=== PATIENT | male | born 1935 | race Caucasian/White ===

== ENCOUNTER 2021-11-30 09:05 | Inpatient (IN) | payer MEDICARE ==
[2021-11-30] MEDS ORDERED: SODIUM CHLORIDE 0.9% 500 ML 500 ML IV STA (09:42)
--- NOTE | 2021-11-30 09:45 | ED ---
General Adult HPI - General Chief complaint: Weakness Stated complaint: nausea Time Seen by Provider: 11/30/21 09:11 Source: patient, EMS Mode of arrival: EMS Limitations: physical limitation - History of Present Illness Initial comments: Dictation was produced using [employer] dictation software. please excuse any grammatical, word or spelling errors. Chief Complaint: 85-year-old male presents emergency department for weakness of presyncope History of Present Illness: 85-year-old male is brought in by EMS for weakness and presyncope. He is had diarrhea for the last one week. Patient was, complains of accompanying shortness of breath. Patient is a poor story. He states that today he almost passed out. He felt really lightheaded. According to nurse received report from EMS EMS was called by patient's family member after the event today. Patient states she's being treated for something by his primary care doctor. Patient states he feels weak and tingly and both lower extremities. Denies any fevers. He states that he feels cold. He has medical process but unable to provide detailed history of his past medical history and current medications. He states he does have some rhinorrhea and nasal congestion. Denies any vaccinations for Coban. Denies any obvious exposures to anybody with URI symptoms. The ROS documented in this emergency department record has been reviewed and confirmed by me. Those systems with pertinent positive or negative responses have been documented in the HPI. All other systems are other negative and/or noncontributory. PHYSICAL EXAM: General Impression: Alert and oriented x3, not in acute distress HEENT: Normocephalic atraumatic, extra-ocular movements intact, pupils equal and reactive to light bilaterally, mucous membranes moist. Cardiovascular: Heart regular rate and rhythm Chest: Able to complete full sentences, no retractions, no tachypnea, so auscultation bilaterally Abdomen: abdomen soft, non-tender, non-distended, no organomegaly Musculoskeletal: Pulses present and equal in all extremities, no peripheral edema Motor: no focal deficits noted Neurological: CN II-XII grossly intact, no focal motor or sensory deficits noted Skin: Intact with no visualized rashes Psych: Normal affect and mood ED course: 85-year-old male presents emergency part for shortness of breath, diarrhea, URI symptoms and bilateral lower extremity paresthesias. Vital signs upon arrival shows temperature 95.3, heart rate of 47. Blood pressure respiratory rate and oxygen are normal. EKG shows narrow complex junctional rhythm. There is no clearly discernible P waves. Laboratory evaluation shows leukopenia of 2.1. Platelets of 85. No old labs for comparison. Coag panel is unremarkable. Metabolic panel shows 128 sodium. Patient is COVID-19 positive. Chest x-ray is nonacute. ambulatory pulse ox is normal. Patient given IV fluids. Patient is agreeable for monoclonal antibody infusion. Patient is so bradycardic at the bedside. Repeat EKG shows no dynamic changes however still shows bradycardia with no discernible P waves. However, rest the patient's vital signs are within acceptable limits. He is well appearing at the bedside. Patient be admitted for cardiology consultation. Case discussed with Dr. Santiago who is willing to accept patients care. EKG interpretation: Ventricular rate 49, junctional rhythm, QRS 76, QTC 473. No GA prolongation, no QTC prolongation, no ST or T-wave changes noted. - Related Data Home Medications Medication Instructions Recorded Confirmed Aspirin EC [Ecotrin Low Dose] 81 mg PO DAILY 11/30/21 11/30/21 Cholecalciferol [Vitamin D3 (25 50 mcg PO DAILY 11/30/21 11/30/21 Mcg = 1000 Iu)] Levothyroxine Sodium [Synthroid] 50 mcg PO DAILY 11/30/21 11/30/21 Naproxen Sodium [Aleve] 220 mg PO BID PRN 11/30/21 11/30/21 Omeprazole 20 mg PO DAILY 11/30/21 11/30/21 Tamsulosin HCl [Flomax] 0.4 mg PO DAILY 11/30/21 11/30/21 diphenhydrAMINE [Benadryl] 25 mg PO Q4-6H PRN 11/30/21 11/30/21 Allergies Allergy/AdvReac Type Severity Reaction Status Date / Time No Known Allergies Allergy Verified 11/30/21 11:00 Review of Systems ROS Statement: Those systems with pertinent positive or pertinent negative responses have been documented in the HPI. ROS Other: All systems not noted in ROS Statement are negative. Past Medical History Past Medical History: Unable to Obtain History of Any Multi-Drug Resistant Organisms: None Reported Past Surgical History: Unable to Obtain Past Psychological History: No Psychological Hx Reported Smoking Status: Former smoker Past Alcohol Use History: Occasional Past Drug Use History: None Reported General Exam Limitations: physical limitation Course Vital Signs 11/30/21 11/30/21 11/30/21 09:11 10:43 12:42 Temperature 95.3 F L 97.0 F L Pulse Rate 47 L 50 L 55 L Respiratory 24 18 20 Rate Blood Pressure 117/75 107/61 120/50 O2 Sat by Pulse 99 98 98 Oximetry Medical Decision Making - Lab Data Result diagrams: 11/30/21 09:42 11/30/21 09:42 Lab Results 11/30/21 11/30/21 11/30/21 Range/Units 09:42 09:42 09:42 WBC 2.1 L (3.8-10.6) k/uL RBC 4.54 (4.30-5.90) m/uL Hgb 13.1 (13.0-17.5) gm/dL Hct 37.9 L (39.0-53.0) % MCV 83.4 (80.0-100.0) fL MCH 28.9 (25.0-35.0) pg MCHC 34.6 (31.0-37.0) g/dL RDW 13.1 (11.5-15.5) % Plt Count 85 L (150-450) k/uL MPV 7.3 Neutrophils % 73 % Lymphocytes % 16 % Monocytes % 5 % Eosinophils % 3 % Basophils % 1 % Neutrophils # 1.5 (1.3-7.7) k/uL Lymphocytes # 0.3 L (1.0-4.8) k/uL Monocytes # 0.1 (0-1.0) k/uL Eosinophils # 0.1 (0-0.7) k/uL Basophils # 0.0 (0-0.2) k/uL Manual Slide Review Performed Poikilocytosis Slight PT 10.6 (9.0-12.0) sec INR 1.0 (<1.2) APTT 25.5 (22.0-30.0) sec Sodium 128 L (137-145) mmol/L Potassium 3.8 (3.5-5.1) mmol/L Chloride 100 (98-107) mmol/L Carbon Dioxide 20 L (22-30) mmol/L Anion Gap 8 mmol/L BUN 11 (9-20) mg/dL Creatinine 0.73 (0.66-1.25) mg/dL Est GFR (CKD-EPI)AfAm >90 (>60 ml/min/1.73 sqM) Est GFR (CKD-EPI)NonAf 85 (>60 ml/min/1.73 sqM) Glucose 118 H (74-99) mg/dL Plasma Lactic Acid Adalberto (0.7-2.0) mmol/L Calcium 8.1 L (8.4-10.2) mg/dL Magnesium 1.7 (1.6-2.3) mg/dL Total Bilirubin 0.9 (0.2-1.3) mg/dL AST 45 (17-59) U/L ALT 17 (4-49) U/L Alkaline Phosphatase 99 (38-126) U/L Troponin I (0.000-0.034) ng/mL Total Protein 5.9 L (6.3-8.2) g/dL Albumin 3.5 (3.5-5.0) g/dL Coronavirus (PCR) (Not Detectd) 11/30/21 11/30/21 11/30/21 Range/Units 09:42 09:42 09:42 WBC (3.8-10.6) k/uL RBC (4.30-5.90) m/uL Hgb (13.0-17.5) gm/dL Hct (39.0-53.0) % MCV (80.0-100.0) fL MCH (25.0-35.0) pg MCHC (31.0-37.0) g/dL RDW (11.5-15.5) % Plt Count (150-450) k/uL MPV Neutrophils % % Lymphocytes % % Monocytes % % Eosinophils % % Basophils % % Neutrophils # (1.3-7.7) k/uL Lymphocytes # (1.0-4.8) k/uL Monocytes # (0-1.0) k/uL Eosinophils # (0-0.7) k/uL Basophils # (0-0.2) k/uL Manual Slide Review Poikilocytosis PT (9.0-12.0) sec INR (<1.2) APTT (22.0-30.0) sec Sodium (137-145) mmol/L Potassium (3.5-5.1) mmol/L Chloride (98-107) mmol/L Carbon Dioxide (22-30) mmol/L Anion Gap mmol/L BUN (9-20) mg/dL Creatinine (0.66-1.25) mg/dL Est GFR (CKD-EPI)AfAm (>60 ml/min/1.73 sqM) Est GFR (CKD-EPI)NonAf (>60 ml/min/1.73 sqM) Glucose (74-99) mg/dL Plasma Lactic Acid Adalberto 1.4 (0.7-2.0) mmol/L Calcium (8.4-10.2) mg/dL Magnesium (1.6-2.3) mg/dL Total Bilirubin (0.2-1.3) mg/dL AST (17-59) U/L ALT (4-49) U/L Alkaline Phosphatase (38-126) U/L Troponin I <0.012 (0.000-0.034) ng/mL Total Protein (6.3-8.2) g/dL Albumin (3.5-5.0) g/dL Coronavirus (PCR) Detected A (Not Detectd) Disposition Clinical Impression: Bradycardia, COVID-19 Disposition: ADMITTED IP TO THIS HOSP Condition: Fair Referrals: Javad Pierre MD [Primary Care Provider] - 1-2 days
[2021-11-30 10:04] LABS: Partial Thromboplastin Time 25.5 sec (22.0-30.0); Prothrombin Time 10.6 sec (9.0-12.0)
[2021-11-30 10:07] LABS: Basophils % (A) 1 %; Eosinophils # (A) 0.1 k/uL (0-0.7); Eosinophils % (A) 3 %; HCT 37.9 % (39.0-53.0); HGB 13.1 gm/dL (13.0-17.5); Lymphocytes # (A) 0.3 k/uL (1.0-4.8); Lymphocytes % (A) 16 %; MCH 28.9 pg (25.0-35.0); MCHC 34.6 g/dL (31.0-37.0); MCV 83.4 fL (80.0-100.0); Mean Platelet Volume 7.3; Monocytes # (A) 0.1 k/uL (0-1.0); Monocytes % (A) 5 %; Neutrophils # (A) 1.5 k/uL (1.3-7.7); Neutrophils % (A) 73 %; Poikilocytosis Slight; RBC 4.54 m/uL (4.30-5.90); RDW 13.1 % (11.5-15.5); WBC 2.1 k/uL (3.8-10.6)
[2021-11-30 10:16] LABS: ALT 17 U/L (4-49); AST 45 U/L (17-59); African American GFR (CKD) >90 (>60 ml/min/1.73 sqM); Albumin 3.5 g/dL (3.5-5.0); Alkaline Phosphatase 99 U/L (38-126); Anion Gap 8 mmol/L; Blood Urea Nitrogen 11 mg/dL (9-20); Calcium 8.1 mg/dL (8.4-10.2); Carbon Dioxide 20 mmol/L (22-30); Chloride 100 mmol/L (98-107); Glucose 118 mg/dL (74-99); Magnesium 1.7 mg/dL (1.6-2.3); Non-African American GFR(CKD) 85 (>60 ml/min/1.73 sqM); Potassium 3.8 mmol/L (3.5-5.1); Sodium 128 mmol/L (137-145); Total Bilirubin 0.9 mg/dL (0.2-1.3); Total Protein 5.9 g/dL (6.3-8.2)
--- NOTE | 2021-11-30 10:19 | XR ---
EXAMINATION TYPE: XR chest 1V portable DATE OF EXAM: 11/30/2021 COMPARISON: NONE HISTORY: Weakness TECHNIQUE: Single frontal view of the chest is obtained. FINDINGS: There is no focal air space opacity, pleural effusion, or pneumothorax seen. The cardiac silhouette size is within normal limits. The osseous structures are intact. Hyperinflation. Hypertr ophic and degenerative changes spine. Arthropathy of the shoulders with diffuse osteopenia. Vague 7 m m nodule right midlung laterally. IMPRESSION: 1. COPD 2. There is a 7 mm right midlung nodule. May represent superimposed structures. Short-term follow-up PA and lateral views of the chest are recommended. If the finding persists at that point a CT scan wo uld be suggested.
[2021-11-30 10:30] LABS: Platelet Count 85 k/uL (150-450)
[2021-11-30] MEDS ORDERED: SODIUM CHLORIDE 0.9% 1,000 ML IV STA (11:59)
[2021-11-30] MEDS ORDERED: SODIUM CHLORIDE 0.9% 50 ML IVPB ONE (12:15)
[2021-11-30] MEDS ORDERED: SOTROVIMAB (EUA) 500 MG in SODIUM CHLORIDE 0.9% 100 ML IVPB ONE (12:15)
[2021-11-30] MEDS ORDERED: NALOXONE 0.4 MG/ML 1 ML VIAL IV PRN (12:44)
[2021-11-30] MEDS: SODIUM CHLORIDE 0.9% 1,000 ML IV SCH (12:47)
[2021-11-30 13:33] LABS: Appearance,Urine Clear (Clear); Bilirubin,Urine Negative (Negative); Blood,Urine Negative (Negative); Color,Urine Yellow; Glucose,Urine (UA) Negative (Negative); Ketones,Urine 4+ (Negative); Leukocyte Esterase,Urine Negative (Negative); Nitrite,Urine Negative (Negative); Protein,Urine Trace (Negative); Specific Gravity,Urine 1.025 (1.001-1.035)
[2021-11-30 13:42] LABS: African American GFR (CKD) >90 (>60 ml/min/1.73 sqM); Anion Gap 8 mmol/L; Blood Urea Nitrogen 11 mg/dL (9-20); Calcium 7.6 mg/dL (8.4-10.2); Carbon Dioxide 20 mmol/L (22-30); Chloride 101 mmol/L (98-107); Glucose 99 mg/dL (74-99); Non-African American GFR(CKD) 89 (>60 ml/min/1.73 sqM); Potassium 3.6 mmol/L (3.5-5.1); Sodium 129 mmol/L (137-145)
[2021-11-30] MEDS: ACETAMINOPHEN TAB 325 MG TAB PO PRN (14:01)
--- NOTE | 2021-11-30 14:11 | P.HPIM ---
History of Present Illness H&P Date: 11/30/21 Chief Complaint: Diarrhea, increased weakness and congestion History of present illness 85 years old male with past medical history of hypothyroidism, GERD, BPH patient of Dr. Pierre comes in with increased weakness, dizziness, multiple bowel movements, flulike symptoms for the past 1 week. Patient was at a family event 1 week ago there all the family members had flulike symptoms. Patient did not recover from the symptoms and was progressively getting weaker. He went to have a shower this morning and was unable to hold himself up. He has poor appetite but is trying to drink of water. He is having multiple episodes of diarrhea for the past week. Patient is not vaccinated for COVID. On evaluation in the ER patient was noted to be bradycardic to the low 47 maintaining blood pressure 117/75 oxygen saturation 99% on room air. Labs are reviewed patient is leukopenic, with thrombocytopenia, hyponatremia, CO2 of 20 creatinine 0.73 troponin 1 negative COVID PCR positive. Chest x-ray suggestive of a 7 mm right mid lung nodule but otherwise no focal airspace opacity pleural effusion or pneumothorax noted. EKG was concerning for junctional rhythm with non- identifiable P waves. On the monitor patient was noted to have heart rate of 55 with normal conduction including P waves in proceeding QRS. Echocardiogram to be obtained. Patient received monoclonal antibody infusion but due to low heartrate would need cardiology evaluation to rule out underlying induction defect. Patient will be started on IV fluids at 75 mL per hour. We'll monitor CMP for hyponatremia. Patient does have evidence of metabolic acidosis likely secondary to fluid loss. ROS Constitutional: Endorses chills, lethargic, poor appetite and , Denies weight loss Eyes: denies decreased vision, denies diplopia, denies discharge, denies pain Ears: deny: decreased hearing Ears, nose, mouth and throat: Denies dental pain, Denies headache, endorses nasal discharge, Denies nose pain endorses lack of smell Cardiovascular: Denies chest pain, Denies decreased exercise tolerance, Denies edema, Denies high blood pressure, Denies irregular heart beat, Denies palpitations, Denies paroxysmal nocturnal dyspnea, Denies rapid heart beat, Denies shortness of breath Respiratory: Denies congestion, endorses cough, Denies cough with sputum, endorses dyspnea, Denies home oxygen, Denies wheezing Gastrointestinal: Denies abdominal pain, Denies coffee ground emesis, Denies early satiety, Denies excessive gas, Denies heartburn, Denies hematemesis, Denies hematochezia, Denies loss of appetite, Denies nausea, Denies vomiting endorses diarrhea Genitourinary: Denies dysuria, Denies flank pain, Denies kidney stones, Denies menorrhagia, Denies urgency, Denies urinary frequency Musculoskeletal: Endorses limitation of motion, Denies morning stiffness, Denies muscle cramps Integumentary: Denies rash, Denies wounds, Denies brittle nails, Denies change in hair/nails, Denies darkening of skin Neurological: Denies balance difficulties, Denies change in speech, Denies double vision, Denies gait dysfunction, Denies loss of vision, Denies motor disturbance, Denies numbness, Denies paralysis, Denies paresthesias, Denies seizures Psychiatric: Denies anxiety, Denies depression Endocrine: Denies excessive sweating, Denies excessive thirst, Denies high blood sugars, Denies palpitations Hematologic/Lymphatic: Denies easy bruising, Denies lymphadenopathy Social history Former smoker quit 20 years ago smoked one pack a day No alcohol use and no illicit drug use Lives with his 5 functionally independent Family history Mother has history of smoking and drinking Father had diabetes, of lung cancer Son has coronary artery disease, daughter has diabetes Physical exam - Constitutional General appearance: cooperative, no acute distress, appears stated age - EENT Eyes: anicteric sclerae, PERRLA, normal appearance ENT: hearing grossly normal - Neck Neck: no lymphadenopathy, normal ROM, no other, no rigidity, no stridor, no thyromegaly - Respiratory Respiratory: bilateral: Decreased air entry, negative: diminished, dullness, rales, rhonchi or crackles - Cardiovascular Rhythm: regular Heart sounds: normal: S1, S2 Abnormal Heart Sounds: no systolic murmur, no diastolic murmur, no rub, no S3 Gallop, no S4 Gallop, no click, no other - Gastrointestinal General gastrointestinal: normal bowel sounds, soft nontender - Integumentary Integumentary: no rash - Neurologic Neurologic: No motor or sensory deficit - Musculoskeletal Musculoskeletal: gait normal, strength equal bilaterally - Psychiatric Psychiatric: A&O x's 3, appropriate affect Assessment and plan Presyncope likely secondary to hypovolemia -Status post 1.5 L IV fluid followed by IV fluids at 75 mL per hour - Likely secondary to COVID infection - orthostatic ordered Hyponatremia - Secondary to hypovolemia - Repeat CMP -Continue normal saline at 75 mL per hour Leukopenia with thrombocytopenia - Secondary to COVID infection -Continue to monitor with daily CBC -No overt signs of bleed Acute gastroenteritis secondary to viral infection -Continue to hydrate with IV fluids no antibiotics indicated - Acute COVID infection -Status post sotrovimab infusion -Inflammation markers ordered - Continue vitamin C, D and sitting - Dexamethasone 6 mg by mouth daily - Lovenox 40 subcu daily -Venous Doppler to rule out lower extremity DVTs if d-dimer elevated Bradycardia with presyncope - EKG noted to be junctional rhythm, repeat EKG -echocardiogram ordered to rule out cardiomyopathy - TSH ordered - Vitals are stable - Cardiology consult Hypothyroidism - continue levothyroxine 50 g by mouth daily BPH -Continue Flomax 0.4 mg by mouth daily GERD -Continue omeprazole 20 mg daily CODE STATUS full code DVT prophylaxis with Lovenox 40 subcu daily Disposition patient need 24-48 hours for cardiology evaluation and stabilization - Past Medical History Past Medical History: Unable to Obtain History of Any Multi-Drug Resistant Organisms: None Reported Past Surgical History: Unable to Obtain Past Psychological History: No Psychological Hx Reported Smoking Status: Former smoker Past Alcohol Use History: Occasional Past Drug Use History: None Reported Medications and Allergies Home Medications Medication Instructions Recorded Confirmed Type Aspirin EC [Ecotrin Low Dose] 81 mg PO DAILY 11/30/21 11/30/21 History Cholecalciferol [Vitamin D3 (25 50 mcg PO DAILY 11/30/21 11/30/21 History Mcg = 1000 Iu)] Levothyroxine Sodium [Synthroid] 50 mcg PO DAILY 11/30/21 11/30/21 History Naproxen Sodium [Aleve] 220 mg PO BID PRN 11/30/21 11/30/21 History Omeprazole 20 mg PO DAILY 11/30/21 11/30/21 History Tamsulosin HCl [Flomax] 0.4 mg PO DAILY 11/30/21 11/30/21 History diphenhydrAMINE [Benadryl] 25 mg PO Q4-6H PRN 11/30/21 11/30/21 History Allergies Allergy/AdvReac Type Severity Reaction Status Date / Time No Known Allergies Allergy Verified 11/30/21 11:00 Physical Exam Vitals: Vital Signs Temp Pulse Resp BP Pulse Ox 11/30/21 12:42 97.0 F L 55 L 20 120/50 98 11/30/21 10:43 50 L 18 107/61 98 11/30/21 09:11 95.3 F L 47 L 24 117/75 99 Intake and Output 11/29/21 11/30/21 11/30/21 22:59 06:59 14:59 Other: Weight 82.1 kg Results CBC & Chem 7: 11/30/21 09:42 11/30/21 13:16 Labs: Abnormal Lab Results - Last 24 Hours (Table) 11/30/21 11/30/21 11/30/21 Range/Units 09:42 09:42 09:42 WBC 2.1 L (3.8-10.6) k/uL Hct 37.9 L (39.0-53.0) % Plt Count 85 L (150-450) k/uL Lymphocytes # 0.3 L (1.0-4.8) k/uL Sodium 128 L (137-145) mmol/L Carbon Dioxide 20 L (22-30) mmol/L Glucose 118 H (74-99) mg/dL Calcium 8.1 L (8.4-10.2) mg/dL Total Protein 5.9 L (6.3-8.2) g/dL Urine Protein (Negative) Urine Ketones (Negative) Coronavirus (PCR) Detected A (Not Detectd) 11/30/21 11/30/21 Range/Units 13:16 13:16 WBC (3.8-10.6) k/uL Hct (39.0-53.0) % Plt Count (150-450) k/uL Lymphocytes # (1.0-4.8) k/uL Sodium 129 L (137-145) mmol/L Carbon Dioxide 20 L (22-30) mmol/L Glucose (74-99) mg/dL Calcium 7.6 L (8.4-10.2) mg/dL Total Protein (6.3-8.2) g/dL Urine Protein Trace H (Negative) Urine Ketones 4+ H (Negative) Coronavirus (PCR) (Not Detectd)
[2021-11-30] MEDS ORDERED: ALBUTEROL HFA INHALER INHALATION PRN (14:13)
[2021-11-30] MEDS: dexAMETHasone 2 MG TAB PO SCH (15:52)
[2021-11-30] MEDS: MAGNESIUM SULFATE-D5W PMX 1 GM in DEXTROSE/WATER 1 100ML.BAG IVPB SCH ×2 (15:53→17:57)
[2021-11-30] MEDS: ZINC SULFATE 220 MG CAP PO SCH (15:53)
[2021-11-30 15:55] LABS: C Reactive Protein 0.8 mg/dL (<1.0)
[2021-12-01] MEDS: LEVOTHYROXINE 50 MCG TAB PO SCH (06:20)
[2021-12-01] MEDS: ASCORBIC ACID 500 MG TAB PO SCH ×3 (06:20→20:31)
[2021-12-01] MEDS: SODIUM CHLORIDE 0.9% 1,000 ML IV SCH ×2 (06:23→12:03)
[2021-12-01] MEDS ORDERED: TAMSULOSIN 0.4 MG CAP.ER.24H PO SCH ×2 (09:00→21:00)
[2021-12-01] MEDS: ENOXAPARIN 40 MG/0.4 ML SYRINGE SQ SCH (10:27)
[2021-12-01] MEDS: ZINC SULFATE 220 MG CAP PO SCH (10:28)
[2021-12-01] MEDS: dexAMETHasone 2 MG TAB PO SCH (10:28)
[2021-12-01] MEDS: CHOLECALCIFEROL 25 MCG (1000 IU) TABLET PO SCH (10:28)
[2021-12-01] MEDS: ASPIRIN 81 MG PO SCH (10:28)
[2021-12-01] MEDS: PANTOPRAZOLE 40 MG TABLET PO SCH (10:28)
--- NOTE | 2021-12-01 12:00 | ECHOF ---
Referral Reason:bradycardia, r/o cardiomyopathy MEASUREMENTS -------- HEIGHT: 170.2 cm WEIGHT: 82.1 kg BP: 93/60 RVIDd: 3.4 cm (< 3.3) IVSd: 1.2 cm (0.6 - 1.1) LVIDd: 4.1 cm (3.9 - 5.3) LVPWd: 1.2 cm (0.6 - 1.1) IVSs: 1.9 cm LVIDs: 2.5 cm LVPWs: 1.6 cm LA Diam: 3.6 cm (2.7 - 3.8) Ao Diam: 3.7 cm (2.0 - 3.7) AV Cusp: 2.2 cm (1.5 - 2.6) MV EXCURSION: 14.414 mm (> 18.000) MV EF SLOPE: 48 mm/s (70 - 150) EPSS: 0.3 cm MV E Hardeep: 0.74 m/s MV DecT: 245 ms MV A Hardeep: 0.88 m/s MV E/A Ratio: 0.84 RAP: 5.00 mmHg RVSP: 18.41 mmHg FINDINGS -------- Sinus rhythm. This was a technically adequate study. The left ventricular size is normal. There is borderline concentric left ventricular hypertrophy. Overall left ventricular systolic function is normal with, an EF between 60 - 65 %. The right ventricle is mildly enlarged. The left atrial size is normal. The right atrium is normal in size. The aortic valve is trileaflet, and appears structurally normal. No aortic stenosis or regurgitation. The mitral valve is normal. Mild tricuspid regurgitation present. There is mild pulmonary hypertension. The right ventricular systolic pressure, as measured by Doppler, is 18.41mmHg. Trace/mild (physiologic) pulmonic regurgitation. The aortic root size is normal. Normal inferior vena cava with normal inspiratory collapse consistent with estimated right atrial pre ssure of 5 mmHg. There is no pericardial effusion. CONCLUSIONS -------- 1. This was a technically adequate study. 2. The left ventricular size is normal. 3. There is borderline concentric left ventricular hypertrophy. 4. Overall left ventricular systolic function is normal with, an EF between 60 - 65 %. 5. The right ventricle is mildly enlarged. 6. The aortic valve is trileaflet, and appears structurally normal. No aortic stenosis or regurgitati on. 7. Mild tricuspid regurgitation present. 8. There is mild pulmonary hypertension. 9. The right ventricular systolic pressure, as measured by Doppler, is 18.41mmHg. 10. Trace/mild (physiologic) pulmonic regurgitation. 11. There is no pericardial effusion. IT [employer] PROJECT MANAGER: HAZEL Henderson
--- NOTE | 2021-12-01 12:17 | CT ---
EXAMINATION TYPE: CT angio chest DATE OF EXAM: 12/01/2021 COMPARISON: HISTORY: Covid, bradycardia, presyncope CT DLP: 380.5 mGycm Automated exposure control for dose reduction was used. CONTRAST: CTA scan of the thorax is performed with IV Contrast, patient injected with 76ml mL of Isovue 370, pu lmonary embolism protocol. MIP images are created and reviewed. 3D reconstructed images are created on an independent workstation and reviewed. FINDINGS: LUNGS: The lungs are grossly clear, there is no concerning parenchymal mass or nodule identified. T here is no pleural effusion or pneumothorax seen. The tracheobronchial tree is patent. AORTA: Root of the aorta measures 4 cm, proximal ascending aorta 3.4 cm, proximal descending aorta 2 .6 cm. MEDIASTINUM: There is satisfactory enhancement of the pulmonary artery and its branches, there is no CT evidence for pulmonary embolism. There are no greater than 1 cm hilar or mediastinal lymph nodes. No pericardial effusion is seen. Pulmonary artery is prominent. OTHER: Gallbladder is filled with stones. There may be a small hiatal hernia. The spleen is enlarged . IMPRESSION: NO EVIDENT PULMONARY EMBOLUS. 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 CORRELATE FOR POSSIBLE PULMONARY HYPERTENSION. CHOLELITHIASIS.
--- NOTE | 2021-12-01 12:31 | P.CRDCN ---
History of Present Illness History of present illness: HISTORY OF PRESENTING ILLNESS This is a pleasant 85-year-old male past medical history significant for hypothyroidism and BPH. 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 We have been asked to see in consultation for bradycardia. Patient presents emergency department with generalized weakness and presyncope. Patient has had diarrhea for the last week and some mild shortness of breath, rhinorrhea and nasal congestion. Patient is not vaccinated against COVID. He is found to be covid-19 positive. Patient states that yesterday he was in the shower, felt lightheaded and some mild shortness of breath and felt that he may pass out. Patient did not lose consciousness. He also has been having episodes of diarrhea. She denies any chest pain, palpitations, loss of consciousness. He denies history of CAD, [place], Stroke, or diabetes. DIAGNOSTICS EKG reveals sinus bradycardia, heart rate 49. Telemetry tracings indicate sinus rhythm, heart rate 5870s Chest xray revealed COPD, 7mm right midlung nodule, may represent superimposed structures. Laboratory reviewed, WBC 2.1, hemoglobin 13, platelets 85, sodium 128, potassium 3.8, BUN 11, serum creatinine 0.7, magnesium 1.7, troponin negative 1, Covid positive Current home medications include aspirin 81 mg daily, Synthroid 50mcg daily, Fl omax 0.4 mg daily, omeprazole, naproxen, vitamin D and Benadryl REVIEW OF SYSTEMS At the time of my exam: CONSTITUTIONAL: Denies fever or chills. CARDIOVASCULAR: Denies chest pain, shortness of breath, orthopnea, PND or palpitations. RESPIRATORY: Denies cough. GASTROINTESTINAL: Denies abdominal pain, diarrhea, constipation, nausea or vomiting. MUSCULOSKELETAL: Denies myalgias. NEUROLOGIC: Denies numbness, tingling, headacbe or weakness. ENDOCRINE: Denies fatigue, weight change, polydipsia or polyurina. GENITOURINARY: Denies burning, hematuria or urgency with micturation. HEMATOLOGIC: Denies history of anemia or bleeding. PHYSICAL EXAMINATION Vitals reviewed CONSTITUTIONAL: No apparent distress. HEENT: Head is normocephalic. Pupils are equal, round. Sclerae anicteric. Mucous membranes of the mouth are moist. No JVD. No carotid bruit. CHEST EXAMINATION: Lungs are clear to auscultation. No chest wall tenderness is noted on palpation or with deep breathing. HEART EXAMINATION: Regular rate and rhythm. S1, S2 heard. No murmurs, gallops or rub. ABDOMEN: Soft, nontender. Positive bowel sounds. EXTREMITIES: 2+ peripheral pulses, no lower extremity edema and no calf tenderness. NEUROLOGIC EXAMINATION: Patient is awake, alert and oriented x3. ASSESSMENT Symptomatic sinus bradycardia Covid-19 infection Hyponatremia Thrombocytopenia History of hypothyroidism History of BPH PLAN Obtain 2D echocardiogram CT chest ordered for elevated d -dimer No further bradycardia noted on telemetry. Patient not on any av malathi blocking agents We will monitor on cardiac telemetry Further recommendations based on clinical course Nurse Practitioner note has been reviewed, I agree with a documented findings and plan of care. Patient was seen and examined. Past Medical History Past Medical History: Unable to Obtain History of Any Multi-Drug Resistant Organisms: None Reported Past Surgical History: Unable to Obtain Past Psychological History: No Psychological Hx Reported Smoking Status: Former smoker Past Alcohol Use History: Occasional Past Drug Use History: None Reported - Past Family History Father Family Medical History: Cancer Mother Family Medical History: No Reported History Additional Family Medical History / Comment(s): of old age Medications and Allergies Home Medications Medication Instructions Recorded Confirmed Type Aspirin EC [Ecotrin Low Dose] 81 mg PO DAILY 11/30/21 11/30/21 History Cholecalciferol [Vitamin D3 (25 50 mcg PO DAILY 11/30/21 11/30/21 History Mcg = 1000 Iu)] Levothyroxine Sodium [Synthroid] 50 mcg PO DAILY 11/30/21 11/30/21 History Naproxen Sodium [Aleve] 220 mg PO BID PRN 11/30/21 11/30/21 History Omeprazole 20 mg PO DAILY 11/30/21 11/30/21 History Tamsulosin HCl [Flomax] 0.4 mg PO DAILY 11/30/21 11/30/21 History diphenhydrAMINE [Benadryl] 25 mg PO Q4-6H PRN 11/30/21 11/30/21 History Allergies Allergy/AdvReac Type Severity Reaction Status Date / Time No Known Allergies Allergy Verified 11/30/21 11:00 Physical Exam Vitals: Vital Signs Temp Pulse Resp BP Pulse Ox 11/30/21 14:01 64 18 98 11/30/21 12:42 97.0 F L 55 L 20 120/50 98 11/30/21 10:43 50 L 18 107/61 98 11/30/21 09:11 95.3 F L 47 L 24 117/75 99 Intake and Output 11/29/21 11/30/21 11/30/21 22:59 06:59 14:59 Other: Weight 82.1 kg Results 11/30/21 09:42 11/30/21 13:16 Cardiac Enzymes 11/30/21 11/30/21 Range/Units 09:42 09:42 AST 45 (17-59) U/L Troponin I <0.012 (0.000-0.034) ng/mL Coagulation 11/30/21 Range/Units 09:42 PT 10.6 (9.0-12.0) sec APTT 25.5 (22.0-30.0) sec CBC 11/30/21 Range/Units 09:42 WBC 2.1 L (3.8-10.6) k/uL RBC 4.54 (4.30-5.90) m/uL Hgb 13.1 (13.0-17.5) gm/dL Hct 37.9 L (39.0-53.0) % Plt Count 85 L (150-450) k/uL Comprehensive Metabolic Panel 11/30/21 11/30/21 Range/Units 09:42 13:16 Sodium 128 L 129 L (137-145) mmol/L Potassium 3.8 3.6 (3.5-5.1) mmol/L Chloride 100 101 (98-107) mmol/L Carbon Dioxide 20 L 20 L (22-30) mmol/L BUN 11 11 (9-20) mg/dL Creatinine 0.73 0.66 (0.66-1.25) mg/dL Glucose 118 H 99 (74-99) mg/dL Calcium 8.1 L 7.6 L (8.4-10.2) mg/dL AST 45 (17-59) U/L ALT 17 (4-49) U/L Alkaline Phosphatase 99 (38-126) U/L Total Protein 5.9 L (6.3-8.2) g/dL Albumin 3.5 (3.5-5.0) g/dL Current Medications Generic Name Dose Route Start Last Admin Trade Name Freq PRN Reason Stop Dose Admin Acetaminophen 650 mg 11/30/21 12:44 11/30/21 14:01 Acetaminophen Tab 325 Mg Tab PO 650 mg Q6HR PRN Administration Mild Pain or Fever > 100.5 Albuterol Sulfate 1 puff 11/30/21 14:13 Albuterol Hfa Inhaler INHALATION RT-QID PRN Shortness Of Breath Or Wheezing Ascorbic Acid 500 mg 11/30/21 21:00 Ascorbic Acid 500 Mg Tab PO BID [facility] Aspirin 81 mg 12/01/21 09:00 Aspirin 81 Mg PO DAILY [facility] Cholecalciferol 50 mcg 12/01/21 09:00 Cholecalciferol 25 Mcg (1000 Iu) Tablet PO DAILY [facility] Dexamethasone 6 mg 11/30/21 14:15 Dexamethasone 2 Mg Tab PO DAILY [facility] Enoxaparin Sodium 40 mg 12/01/21 09:00 Enoxaparin 40 Mg/0.4 Ml Syringe SQ DAILY [facility] Sodium Chloride 1,000 mls @ 75 mls/hr 11/30/21 12:45 11/30/21 12:47 Saline 0.9% IV 75 mls/hr .[id number] [facility] Administration Magnesium Sulfate/Dextrose 1 100 mls @ 100 mls/hr 11/30/21 14:15 gm/ IV Solution IVPB 11/30/21 16:14 Q1H [facility] Levothyroxine Sodium 50 mcg 12/01/21 06:30 Levothyroxine 50 Mcg [place] 0630 [facility] Naloxone HCl 0.2 mg 11/30/21 12:44 Naloxone 0.4 Mg/Ml 1 Ml Vial IV Q2M PRN Opioid Reversal Pantoprazole Sodium 40 mg 12/01/21 09:00 Pantoprazole 40 Mg Tablet PO DAILY [facility] Tamsulosin HCl 0.4 mg 12/01/21 09:00 Tamsulosin 0.4 Mg Cap.Er.24h PO DAILY [facility] Zinc Sulfate 220 mg 11/30/21 14:15 Zinc Sulfate 220 Mg Cap PO DAILY [facility] Intake and Output 11/29/21 11/30/21 11/30/21 22:59 06:59 14:59 Other: Weight 82.1 kg Patient Weight 12/01/21 06:59 Weight 82.1 kg 11/30/21 09:42 11/30/21 13:16
--- NOTE | 2021-12-01 13:42 | P.PN ---
Subjective Progress Note Date: 12/01/21 History of present illness 85 years old male with past medical history of hypothyroidism, GERD, BPH patient of Dr. Pierre comes in with increased weakness, dizziness, multiple bowel movements, flulike symptoms for the past 1 week. Patient was at a family event 1 week ago there all the family members had flulike symptoms. Patient did not recover from the symptoms and was progressively getting weaker. He went to have a shower this morning and was unable to hold himself up. He has poor appet ite but is trying to drink of water. He is having multiple episodes of diarrhea for the past week. Patient is not vaccinated for COVID. On evaluation in the ER patient was noted to be bradycardic to the low 47 maintaining blood pressure 117/75 oxygen saturation 99% on room air. Labs are reviewed patient is leukopenic, with thrombocytopenia, hyponatremia, CO2 of 20 creatinine 0.73 troponin 1 negative COVID PCR positive. Chest x-ray suggestive of a 7 mm right mid lung nodule but otherwise no focal airspace opacity pleural effusion or pneumothorax noted. EKG was concerning for junctional rhythm with non- identifiable P waves. On the monitor patient was noted to have heart rate of 55 with normal conduction including P waves in proceeding QRS. Echocardiogram to be obtained. Patient received monoclonal antibody infusion but due to low heartrate would need cardiology evaluation to rule out underlying induction defect. Patient will be started on IV fluids at 75 mL per hour. We'll monitor CMP for hyponatremia. Patient does have evidence of metabolic acidosis likely secondary to fluid loss. 12/01: Patient is been seen by cardiology for symptomatic sinus bradycardia. Echocardiogram ordered. No further episodes of bradycardia on telemetry. Patient is not on any malathi blocking agents. Continue cardiac monitoring. Patient remains in isolation for Covid 19. Ensure added. Patient's been afebrile, heart rate 73, blood pressure 130/66, pulse ox 90% on room air. D- dimer was elevated 1.39 and the CTA ordered. TSH 0.997. Blood culture no growth at [address] angiogram was negative for pulmonary embolism. 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 Splenomegaly. Correlate for possible pulmonary hypertension. Cholelithiasis. Echocardiogram reveals EF of 60-65%, borderline concentric left ventricular hypertrophy, mild tricuspid regurgitation, mild pulmonary hypertension. ROS Constitutional: Endorses chills, lethargic, poor appetite and , Denies weight loss Eyes: denies decreased vision, denies diplopia, denies discharge, denies pain HER-2 dark and Parkinson's will Ears, nose, mouth and throat: Denies dental pain, Denies headache, endorses nasal discharge, Denies nose pain endorses lack of smell Cardiovascular: Denies chest pain, Denies decreased exercise tolerance, Denies edema, Denies high blood pressure, Denies irregular heart beat, Denies palpitations, Denies paroxysmal nocturnal dyspnea, Denies rapid heart beat, Denies shortness of breath Respiratory: Denies congestion, endorses cough, Denies cough with sputum, endorses dyspnea, Denies home oxygen, Denies wheezing Gastrointestinal: Denies abdominal pain, Denies coffee ground emesis, Denies early satiety, Denies excessive gas, Denies heartburn, Denies hematemesis, Denies hematochezia, Denies loss of appetite, Denies nausea, Denies vomiting endorses diarrhea Genitourinary: Denies dysuria, Denies flank pain, Denies kidney stones, Denies menorrhagia, Denies urgency, Denies urinary frequency Musculoskeletal: Endorses limitation of motion, Denies morning stiffness, Denies muscle cramps Integumentary: Denies rash, Denies wounds, Denies brittle nails, Denies change in hair/nails, Denies darkening of skin Neurological: Denies balance difficulties, Denies change in speech, Denies double vision, Denies gait dysfunction, Denies loss of vision, Denies motor disturbance, Denies numbness, Denies paralysis, Denies paresthesias, Denies seizures Psychiatric: Denies anxiety, Denies depression Endocrine: Denies excessive sweating, Denies excessive thirst, Denies high blood sugars, Denies palpitations Hematologic/Lymphatic: Denies easy bruising, Denies lymphadenopathy Physical exam - Constitutional General appearance: cooperative, no acute distress, appears stated age - EENT Eyes: anicteric sclerae, PERRLA, normal appearance ENT: hearing grossly normal - Neck Neck: no lymphadenopathy, normal ROM, no other, no rigidity, no stridor, no thyromegaly - Respiratory Respiratory: bilateral: Decreased air entry, negative: diminished, dullness, rales, rhonchi or crackles - Cardiovascular Rhythm: regular Heart sounds: normal: S1, S2 Abnormal Heart Sounds: no systolic murmur, no diastolic murmur, no rub, no S3 Gallop, no S4 Gallop, no click, no other - Gastrointestinal General gastrointestinal: normal bowel sounds, soft, no abdominal tenderness - Integumentary Integumentary: no rash - Neurologic Neurologic: No motor or sensory deficit - Musculoskeletal Musculoskeletal: gait normal, strength equal bilaterally - Psychiatric Psychiatric: A&O x's 3, appropriate affect Assessment and plan Presyncope likely secondary to hypovolemia -Status post 1.5 L IV fluid followed by IV fluids at 75 mL per hour - Likely secondary to COVID infection - orthostatic ordered Hyponatremia - Secondary to hypovolemia - Repeat CMP -Continue normal saline at 75 mL per hour Leukopenia with thrombocytopenia - Secondary to COVID infection -Continue to monitor with daily CBC -No overt signs of bleed Acute gastroenteritis secondary to viral infection -Continue to hydrate with IV fluids no antibiotics indicated - Acute COVID infection -Status post sotrovimab infusion -Inflammation markers ordered - Continue vitamin C, D and sitting - Dexamethasone 6 mg by mouth daily - Lovenox 40 subcu daily Bradycardia with presyncope - EKG noted to be junctional rhythm, repeat EKG - Cardiology consult appreciated Hypothyroidism - continue levothyroxine 50 g by mouth daily BPH -Continue Flomax 0.4 mg by mouth daily GERD -Continue omeprazole 20 mg daily CODE STATUS full code DVT prophylaxis with Lovenox 40 subcu daily Discharge Plan Home without home care Impression and plan of care have been directed as dictated by the signing physician. Lisa Ayala nurse practitioner acting as scribe for signing physician. Objective - Vital Signs Vital signs: Vital Signs Temp 97.4 F L 12/01/21 10:35 Pulse 73 12/01/21 10:35 Resp 16 12/01/21 10:35 BP 130/66 12/01/21 10:35 Pulse Ox 98 12/01/21 10:35 Intake & Output 11/30/21 12/01/21 12/01/21 18:59 06:59 18:59 Intake Total 0 Balance 0 Weight 82.1 kg 82.1 kg Intake: Oral 0 - Labs CBC & Chem 7: 11/30/21 09:42 11/30/21 13:16 Labs: Abnormal Lab Results - Last 24 Hours (Table) 11/30/21 11/30/21 11/30/21 Range/Units 13:16 13:16 15:02 D-Dimer 1.39 H (<0.60) mg/L FEU Sodium 129 L (137-145) mmol/L Carbon Dioxide 20 L (22-30) mmol/L Calcium 7.6 L (8.4-10.2) mg/dL Ferritin (22.0-322.0) ng/mL Urine Protein Trace H (Negative) Urine Ketones 4+ H (Negative) 11/30/21 Range/Units 15:02 D-Dimer (<0.60) mg/L FEU Sodium (137-145) mmol/L Carbon Dioxide (22-30) mmol/L Calcium (8.4-10.2) mg/dL Ferritin 708.0 H (22.0-322.0) ng/mL Urine Protein (Negative) Urine Ketones (Negative)
[2021-12-01] MEDS: ACETAMINOPHEN TAB 325 MG TAB PO PRN (23:06)
[2021-12-02] MEDS: LEVOTHYROXINE 50 MCG TAB PO SCH (05:08)
[2021-12-02] MEDS: SODIUM CHLORIDE 0.9% 1,000 ML IV SCH (08:18)
[2021-12-02] MEDS: ENOXAPARIN 40 MG/0.4 ML SYRINGE SQ SCH (08:26)
[2021-12-02] MEDS: dexAMETHasone 2 MG TAB PO SCH (08:27)
[2021-12-02] MEDS: ASPIRIN 81 MG PO SCH (08:27)
[2021-12-02] MEDS: PANTOPRAZOLE 40 MG TABLET PO SCH (08:27)
[2021-12-02] MEDS: ZINC SULFATE 220 MG CAP PO SCH (08:27)
[2021-12-02] MEDS: ASCORBIC ACID 500 MG TAB PO SCH (08:27)
[2021-12-02] MEDS: CHOLECALCIFEROL 25 MCG (1000 IU) TABLET PO SCH (08:27)
--- NOTE | 2021-12-02 10:51 | P.PN ---
Subjective *Live* [facility] [address] [place], [place] [address] Cardiology - Consult Note Patient Name: Sean Guillermo Date of : 1935 Patient Status: Inpatient Attending Provider: Manny Santiago Date: 12/01/21 07:09 Initialization Date: 11/30/21 14:39 History of Present Illness History of present illness: HISTORY OF PRESENTING ILLNESS This is a pleasant 85-year-old male past medical history significant for hypothyroidism and BPH. 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 We have been asked to see in consultation for bradycardia. Patient presents emergency department with generalized weakness and presyncope. Patient has had diarrhea for the last week and some mild shortness of breath, rhinorrhea and nasal congestion. Patient is not vaccinated against COVID. He is found to be covid-19 positive. Patient states that yesterday he was in the shower, felt lightheaded and some mild shortness of breath and felt that he may pass out. Patient did not lose consciousness. He also has been having episodes of diarrhea. She denies any chest pain, palpitations, loss of consciousness. He denies history of CAD, [place], Stroke, or diabetes. EKG reveals sinus bradycardia, heart rate 49. 12/02/2021 Patient seen and examined at bedside, no acute distress. He states his symptoms of mild shortness of breath, nasal congestion and diarrhea have improved. Telemetry tracings indicate sinus rhythm, heart rate 45-50s overnight. With ambulation and activity patient's heart rates increase to the 80s. CT chest revealed no pulmonary embolism. Echocardiogram revealed EF 6065 percent, mild pulmonary hypertension RVSP of 18 mmHg. Pleasant, TSH within normal limits. He is maintained on Aspirin, Lovenox, Synthroid, Protonix, Flomax, Zinc sulfate, and vitamin C, dexamthasone, Vitamin D3. No Av malathi blocking agents present PHYSICAL EXAMINATION Vitals reviewed CONSTITUTIONAL: No apparent distress. HEENT: Neck Supple. No JVD. CHEST EXAMINATION: Lungs are clear to auscultation. HEART EXAMINATION: Regular rate and rhythm. S1, S2 heard. No murmurs, gallops or rub. ABDOMEN: Soft, nontender. Positive bowel sounds. EXTREMITIES: no lower extremity edema and no calf tenderness. NEUROLOGIC EXAMINATION: Patient is awake, alert and oriented x3. ASSESSMENT Symptomatic sinus bradycardia Covid-19 infection Hyponatremia Thrombocytopenia History of hypothyroidism History of BPH PLAN From a cardiology perspective, patient is stable to be discharged home. Follow up with Dr. Childers in the office in 3-4 weeks. Nurse Practitioner note has been reviewed, I agree with a documented findings and plan of care. Patient was seen and examined. Objective - Vital Signs Vital signs: Vital Signs Temp 97.5 F L 12/02/21 08:20 Pulse 62 12/02/21 08:20 Resp 17 12/02/21 08:20 BP 118/66 12/02/21 08:20 Pulse Ox 97 12/02/21 09:12 Intake & Output 12/01/21 12/02/21 12/02/21 18:59 06:59 18:59 Intake Total 960 600 180 Output Total 600 Balance 360 600 180 Weight 82.1 kg Intake: Intake, IV Titration 600 Amount Sodium Chloride 0.9% 1, 600 000 ml @ 75 mls/hr IV . [id number] [facility] Rx#:[id number] Oral 960 180 Output: Urine 600 Other: Voiding Method Toilet Toilet # Voids 1 - Labs CBC & Chem 7: 11/30/21 09:42 11/30/21 13:16 Labs: Microbiology - Last 24 Hours (Table) 11/30/21 09:42 Blood Culture - Preliminary Blood No Growth after 24 hours 11/30/21 09:42 Blood Culture - Preliminary Blood No Growth after 24 hours
[2021-12-02 11:18] LABS: HCT 34.8 % (39.0-53.0); MCH 29.9 pg (25.0-35.0); MCHC 34.5 g/dL (31.0-37.0); MCV 86.7 fL (80.0-100.0); Mean Platelet Volume 8.5; Platelet Count 100 k/uL (150-450); RBC 4.01 m/uL (4.30-5.90); RDW 13.2 % (11.5-15.5); WBC 7.1 k/uL (3.8-10.6)
[2021-12-02 11:37] VITALS: BP 118/68; PULSE 58; RESP 16; TEMP 97.4
[2021-12-02 11:44] LABS: African American GFR (CKD) >90 (>60 ml/min/1.73 sqM); Anion Gap 6 mmol/L; Blood Urea Nitrogen 14 mg/dL (9-20); Carbon Dioxide 22 mmol/L (22-30); Chloride 107 mmol/L (98-107); Glucose 132 mg/dL (74-99); Non-African American GFR(CKD) 84 (>60 ml/min/1.73 sqM); Potassium 4.2 mmol/L (3.5-5.1); Sodium 135 mmol/L (137-145)
--- NOTE | 2021-12-02 16:23 | P.DS ---
Providers Date of admission: 11/30/21 12:45 Expected date of discharge: 12/02/21 Attending physician: Manny Santiago MD Consults: 11/30/21 12:45 Consult Physician Routine Consulting Provider: Arlet Alvarenga Consult Reason/Comments: bradycardia Do you want consulting provider notified?: Yes Primary care physician: [facility] Course: History of present illness 85 years old male with past medical history of hypothyroidism, GERD, BPH patient of Dr. Pierre comes in with increased weakness, dizziness, multiple bowel movements, flulike symptoms for the past 1 week. Patient was at a family event 1 week ago there all the family members had flulike symptoms. Patient did not recover from the symptoms and was progressively getting weaker. He went to have a shower this morning and was unable to hold himself up. He has poor appetite but is trying to drink of water. He is having multiple episodes of diarrhea for the past week. Patient is not vaccinated for COVID. On evaluation in the ER patient was noted to be bradycardic to the low 47 maintaining blood pressure 117/75 oxygen saturation 99% on room air. Labs are reviewed patient is leukopenic, with thrombocytopenia, hyponatremia, CO2 of 20 creatinine 0.73 troponin 1 negative COVID PCR positive. Chest x-ray suggestive of a 7 mm right mid lung nodule but otherwise no focal airspace opacity pleural effusion or pneumothorax noted. EKG was concerning for junctional rhythm with non- identifiable P waves. On the monitor patient was noted to have heart rate of 55 with normal conduction including P waves in proceeding QRS. Echocardiogram to be obtained. Patient received monoclonal antibody infusion but due to low heartrate would need cardiology evaluation to rule out underlying induction d efect. Patient will be started on IV fluids at 75 mL per hour. We'll monitor CMP for hyponatremia. Patient does have evidence of metabolic acidosis likely secondary to fluid loss. 12/01: Patient is been seen by cardiology for symptomatic sinus bradycardia. Echocardiogram ordered. No further episodes of bradycardia on telemetry. Patient is not on any malathi blocking agents. Continue cardiac monitoring. Patient remains in isolation for Covid 19. Ensure added. Patient's been afebrile, heart rate 73, blood pressure 130/66, pulse ox 90% on room air. D- dimer was elevated 1.39 and the CTA ordered. TSH 0.997. Blood culture no growth at [address] angiogram was negative for pulmonary embolism. 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 Splenomegaly. Correlate for possible pulmonary hypertension. Cholelithiasis. Echocardiogram reveals EF of 60-65%, borderline concentric left ventricular hypertrophy, mild tricuspid regurgitation, mild pulmonary hypertension. 12/02: Patient denies any new complaints. No significant shortness of breath, no chest pain. Heart rate running in the 45 and 50s overnight and running in the 80s during the day. CT angiogram was negative for pulmonary embolism. Echocardiogram revealed EF of 60-65%, mild pulmonary hypertension with RVSP of 18 mmHg. TSH was normal. Patient was evaluated by cardiology and cleared for discharge. Patient will be discharged home today in stable condition. DISCHARGE DIAGNOSES Presyncope likely secondary to hypovolemia Hyponatremia Secondary to hypovolemia Leukopenia with thrombocytopenia - Secondary to COVID infection Acute gastroenteritis secondary to viral infection Acute COVID infection -Status post sotrovimab infusion Bradycardia with presyncope Hypothyroidism BPH GERD Discharge Plan Home without home care Greater than 35 minutes was utilized and coordinating patient's discharge. Impression and plan of care have been directed as dictated by the signing physician. Lisa Ayala nurse practitioner acting as scribe for signing physician. Patient Condition at Discharge: Good Plan - Discharge Summary Discharge Rx Participant: No New Discharge Prescriptions: New Zinc Sulfate [Orazinc] 220 mg PO DAILY cap Ascorbic Acid [Vitamin C] 500 mg PO BID tab Dexamethasone [Decadron] 6 mg PO DAILY #3 tablet Continue Cholecalciferol [Vitamin D3 (25 Mcg = 1000 Iu)] 50 mcg PO DAILY Aspirin EC [Ecotrin Low Dose] 81 mg PO DAILY Omeprazole 20 mg PO DAILY Tamsulosin HCl [Flomax] 0.4 mg PO DAILY diphenhydrAMINE [Benadryl] 25 mg PO Q4-6H PRN PRN Reason: Allergy Symptoms Naproxen Sodium [Aleve] 220 mg PO BID PRN PRN Reason: Pain Levothyroxine Sodium [Synthroid] 50 mcg PO DAILY Discharge Medication List Aspirin EC [Ecotrin Low Dose] 81 mg PO DAILY 11/30/21 [History] Cholecalciferol [Vitamin D3 (25 Mcg = 1000 Iu)] 50 mcg PO DAILY 11/30/21 [History] Levothyroxine Sodium [Synthroid] 50 mcg PO DAILY 11/30/21 [History] Naproxen Sodium [Aleve] 220 mg PO BID PRN 11/30/21 [History] Omeprazole 20 mg PO DAILY 11/30/21 [History] Tamsulosin HCl [Flomax] 0.4 mg PO DAILY 11/30/21 [History] diphenhydrAMINE [Benadryl] 25 mg PO Q4-6H PRN 11/30/21 [History] Ascorbic Acid [Vitamin C] 500 mg PO BID tab 12/02/21 [Rx] Dexamethasone [Decadron] 6 mg PO DAILY #3 tablet 12/02/21 [Rx] Zinc Sulfate [Orazinc] 220 mg PO DAILY cap 12/02/21 [Rx] Follow up Appointment(s)/Referral(s): Javad Pierre MD [Primary Care Provider] - 12/07/21 10:45 am (phone call visit, office will call you) Hamilton Childers MD [STAFF PHYSICIAN] - 4 Weeks (Spoke to medical office receptionist. Office will call with appointment time) Patient Instructions/Handouts: Bradycardia (DC) Discharge Disposition: HOME SELF-CARE
== END 2021-12-02 13:45 | disposition home or self-care (01) | DRG 178 ==
LOC: EC 09:05 → 3SCARD 12:45
PROVIDERS: ADMIT Internal Medicine; ATTEND Internal Medicine
PROC: XW033H6 Introduction of Other New Technology Monoclonal Antibody into Peripheral Vein, Percutaneous Approach, New Technology Group 6 (ICD-10-PCS; principal; 2021-11-30)
DX: U07.1 COVID-19 (principal); E87.1 Hypo-osmolality and hyponatremia; E87.2 Acidosis; E86.1 Hypovolemia; R55 Syncope and collapse; D69.6 Thrombocytopenia, unspecified; I07.1 Rheumatic tricuspid insufficiency; N40.0 Benign prostatic hyperplasia without lower urinary tract symptoms; I27.29 Other secondary pulmonary hypertension; D72.819 Decreased white blood cell count, unspecified; A08.4 Viral intestinal infection, unspecified; E03.9 Hypothyroidism, unspecified; Z79.890 Hormone replacement therapy; K21.9 Gastro-esophageal reflux disease without esophagitis; I44.0 Atrioventricular block, first degree; I27.20 Pulmonary hypertension, unspecified; J44.9 Chronic obstructive pulmonary disease, unspecified; K80.20 Calculus of gallbladder without cholecystitis without obstruction; Z79.82 Long term (current) use of aspirin; Z79.899 Other long term (current) drug therapy; Z80.1 Family history of malignant neoplasm of trachea, bronchus and lung; Z83.3 Family history of diabetes mellitus; Z87.891 Personal history of nicotine dependence
CPT/HCPCS: 36415; 71045; 71275; 80048; 80053; 81003; 82728; 83605; 83615; 83735; 84145; 84443; 84484; 85025; 85027; 85379; 85384; 85610; 85652; 85730; 86140; 87040; 87635; 93005; 93306; 94760; 99285

== ENCOUNTER 2023-12-13 10:51 | Emergency (ER) | payer MEDICARE ==
--- NOTE | 2023-12-13 11:13 | ED ---
General Adult HPI - General Chief complaint: Dizziness Stated complaint: Dizziness Time Seen by Provider: 12/13/23 10:54 Source: patient, EMS Mode of arrival: EMS Limitations: no limitations - History of Present Illness Initial comments: Dictation was produced using bttn dictation software. please excuse any grammatical, word or spelling errors. Chief Complaint: 88-year-old male presents to the emergency department with dizziness History of Present Illness: Patient is 88-year-old male presents emergency department dizziness. Patient reports history of vertigo. States that his symptoms feel different today. Denies symptoms feeling like the room is spinning. Does not take any vertigo medications. Patient has no fever chills or night sweats. No numbness tingling. States that his dizziness is ongoing and occurring even at rest. Does feel like it slightly worse whenever he tries to ambulate. No pain complaints. The ROS documented in this emergency department record has been reviewed and confirmed by me. Those systems with pertinent positive or negative responses have been documented in the HPI. All other systems are other negative and/or noncontributory. - Related Data Home Medications Medication Instructions Recorded Confirmed Levothyroxine Sodium [Synthroid] 50 mcg PO DAILY 11/30/21 11/30/21 Omeprazole 20 mg PO DAILY 11/30/21 11/30/21 Tamsulosin HCl [Flomax] 0.4 mg PO DAILY 11/30/21 11/30/21 Fenofibrate Nanocrystallized 145 mg PO DAILY 12/13/23 12/13/23 [Fenofibrate] Triamterene/Hydrochlorothiazid 1 tab PO DAILY 12/13/23 12/13/23 [Triamterene-Hctz 37.5-25 mg Tb] Allergies Allergy/AdvReac Type Severity Reaction Status Date / Time No Known Allergies Allergy Verified 12/13/23 12:44 Review of Systems ROS Statement: Those systems with pertinent positive or pertinent negative responses have been documented in the HPI. ROS Other: All systems not noted in ROS Statement are negative. Past Medical History Past Medical History: Unable to Obtain History of Any Multi-Drug Resistant Organisms: None Reported Past Surgical History: Unable to Obtain Past Anesthesia/Blood Transfusion Reactions: No Reported Reaction Past Psychological History: No Psychological Hx Reported Smoking Status: Former smoker Past Alcohol Use History: Occasional Past Drug Use History: None Reported - Past Family History Father Family Medical History: Cancer Mother Family Medical History: No Reported History Additional Family Medical History / Comment(s): of old age General Exam - General Exam Comments Initial Comments: PHYSICAL EXAM: General Impression: Alert and oriented x3, acute distress secondary dizziness HEENT: Normocephalic atraumatic, extra-ocular movements intact, pupils equal and reactive to light bilaterally, mucous membranes moist. Cardiovascular: Heart regular rate and rhythm Chest: Able to complete full sentences, no retractions, no tachypnea Abdomen: abdomen soft, non-tender, non-distended, no organomegaly Musculoskeletal: Pulses present and equal in all extremities, no peripheral edema Motor: no focal deficits noted Neurological: CN II-XII grossly intact, no focal motor or sensory deficits noted Skin: Intact with no visualized rashes Psych: Normal affect and mood Limitations: no limitations Course Vital Signs 12/13/23 12/13/23 12/13/23 10:55 11:19 11:33 Temperature Pulse Rate 47 L 53 L 57 L Respiratory 18 24 20 Rate Blood Pressure 113/54 120/52 83/54 O2 Sat by Pulse 95 100 99 Oximetry 12/13/23 12/13/23 11:37 11:40 Temperature 98.2 F Pulse Rate 49 L Respiratory 20 Rate Blood Pressure 104/45 O2 Sat by Pulse 97 Oximetry - Reevaluation(s) Reevaluation #1: 12/13/23 11:22 I was informed by the nurse at approximately 1:18 AM that patient was having whole body tingling and complaining of shortness of breath. His reevaluate the bedside. His vital signs are stable. Is not hypoxic. He is equal pulses in all of his extremities. Repeat EKG is unchanged. Patient does seem to be slightly anxious given some anxiolytic medications. Reevaluation #2: 12/13/23 13:03 Patient reevaluated at bedside at 1:02 PM. CBC, coag panel, metabolic panel with acceptable limits. Mild hypokalemia of 3.1 lactic acidosis of 4.2, viral testing is negative. CT angiography is negative for any acute processes. Chest x-ray is unremarkable. Patient reviewed evaluated after anxiolytic medication with complete resolution of his symptoms. Disposition options were discussed patient would prefer to be discharged. He is discharged with strict return precautions. Advise close follow-up with primary care doctor. Son is at the bedside states that patient has extensive history of vertigo. He typically travels with meclizine however he did not bring his meclizine with him when he went to his vehicle appointment which is when his symptoms began. EKG Findings - EKG Comments: EKG Findings:: My EKG interpretation: Ventricular rate 52, sinus bradycardia,. Well 209, cures 94, QTc 430. No [place] prolongation, no QTC prolongation, no ST or T-wave changes noted. EKG compared to November 30, 2021 showing no changes. Overall, this EKG is unremarkable Medical Decision Making - Medical Decision Making Was pt. sent in by a medical professional or institution (, PA, AIR CONDITIONING INSTALLER SUPERVISOR, urgent care, hospital, or intermediate...) When possible be specific @ -No Did you speak to anyone other than the patient for history (EMS, parent, family, police, friend...)? What history was obtained from this source @ -See above Did you review nursing and triage notes (agree or disagree)? Why? @ -I reviewed and agree with nursing and triage notes Were old charts reviewed (outside hosp., previous admission, EMS record, old EKG, old radiological studies, urgent care reports/EKG's, intermediate records)? Report findings @ -No old charts were reviewed Differential Diagnosis (chest pain, altered mental status, abdominal pain women, abdominal pain men, vaginal bleeding, musculoskeletal, weakness, fever, dyspnea, syncope, headache, dizziness, GI bleed, back pain, seizure, CVA, palpatations, mental health)? @ -Differential Dizziness: Benign paroxysmal positional Vertigo, Menieres disease, otitis media, acoustic neuroma, vertebrobasilar insufficiency, cerebellar stroke, encephalitis, hypovolemic, arrhythmia, coronary artery syndrome, anemia, this is not meant to be an all-inclusive list EKG interpreted by me (3pts min.). @ -See above X-rays interpreted by me (1pt min.). @ -Chest x-ray is nonacute CT interpreted by me (1pt min.). @ -CT angiography shows no acute processes U/S interpreted by me (1pt. min.). @ -None done What testing was considered but not performed or refused? (CT, X-rays, U/S, labs)? Why? @ -None What meds were considered but not given or refused? Why? @ -None Did you discuss the management of the patient with other professionals (professionals i.e. , PA, AIR CONDITIONING INSTALLER SUPERVISOR, lab, RT, psych nurse, pediatric social worker, assistant plant control operator, teacher, minesweeping officer, case sealer)? Give summary @ -No Was smoking cessation discussed for >3mins.? @ -No Was critical care preformed (if so, how long)? @ -No Were there social determinants of health that impacted care today? How? (Homelessness, low income, unemployed, alcoholism, drug addiction, transportation, low edu. Level, literacy, decrease access to med. care, [facility], rehab)? @ -No Was there de-escalation of care discussed even if they declined (Discuss DNR or withdrawal of care, Hospice)? DNR status @ -No What co-morbidities impacted this encounter? (DM, HTN, Smoking, COPD, CAD, Cancer, CVA, ARF, Chemo, Hep., AIDS, mental health diagnosis, sleep apnea, morbid obesity)? @ -History of vertigo Was patient admitted / discharged? Hospital course, mention meds given and route, prescriptions, significant lab abnormalities, going to OR and other pertinent info. @ -88-year-old male with history of vertigo presents to the ER for dizziness. Vital signs upon arrival shows mild bradycardia. Rest of vital signs within acceptable limits. Patient appears to be very anxious at the bedside giving some anxiolytic medications. Laboratory evaluation obtained. CBC is unremarkable. Metabolic panel shows mild hypokalemia 3.1 and lactic acidosis of 4.2. Rest of labs negative. Patient evaluated after anxiolytic medication with complete resolution of his symptoms. Imaging studies are negative. Repeat lactic is 1.4. Disposition options are discussed. Patient wants to go home. Patient strongly feels that his symptoms are secondary to recurrence of vertigo. Patient was offered observation admission however he refused. Undiagnosed new problem with uncertain prognosis? @ -No Drug Therapy requiring intensive monitoring for toxicity (Heparin, Nitro, Insulin, Cardizem)? @ -No Were any procedures done? @ -No Diagnosis/symptom? Acute, or Chronic, or Acute on Chronic? Uncomplicated (without systemic symptoms) or Complicated (systemic symptoms)? @ -Dizziness Side effects of treatment? @ -No Exacerbation, Progression, or Severe Exacerbation? @ -No Poses a threat to life or bodily function? How? (Chest pain, [place], CA, pneumonia, PE, COPD, DKA, ARF, appy, cholecystitis, CVA, Diverticulitis, Homicidal, Suicidal, threat to staff... and all critical care pts) @ -No - Lab Data Result diagrams: 12/13/23 11:12 12/13/23 11:12 Lab Results 12/13/23 12/13/23 12/13/23 Range/Units 11:12 11:12 11:12 WBC 4.6 (3.8-10.6) k/uL RBC 4.62 (4.30-5.90) m/uL Hgb 14.0 (13.0-17.5) gm/dL Hct 40.0 (39.0-53.0) % MCV 86.6 (80.0-100.0) fL MCH 30.4 (25.0-35.0) pg MCHC 35.1 (31.0-37.0) g/dL RDW 13.1 (11.5-15.5) % Plt Count 139 L (150-450) k/uL MPV 7.5 Neutrophils % 74 % Lymphocytes % 18 % Monocytes % 6 % Eosinophils % 1 % Basophils % 1 % Neutrophils # 3.4 (1.3-7.7) k/uL Lymphocytes # 0.8 L (1.0-4.8) k/uL Monocytes # 0.3 (0-1.0) k/uL Eosinophils # 0.1 (0-0.7) k/uL Basophils # 0.0 (0-0.2) k/uL PT (10.0-12.5) sec INR (<1.2) APTT (22.0-30.0) sec Sodium 139 (137-145) mmol/L Potassium 3.1 L (3.5-5.1) mmol/L Chloride 107 (98-107) mmol/L Carbon Dioxide 23 (22-30) mmol/L Anion Gap 9 mmol/L BUN 18 (9-20) mg/dL Creatinine 1.20 (0.66-1.25) mg/dL Est GFR (CKD-EPI)AfAm 63 (>60 ml/min/1.73 sqM) Est GFR (CKD-EPI)NonAf 54 (>60 ml/min/1.73 sqM) Glucose 134 H (74-99) mg/dL Plasma Lactic Acid Adalberto 4.2 H* (0.7-2.0) mmol/L Calcium 8.9 (8.4-10.2) mg/dL Magnesium 1.6 (1.6-2.3) mg/dL Total Bilirubin 0.7 (0.2-1.3) mg/dL AST 32 (17-59) U/L ALT 18 (4-49) U/L Alkaline Phosphatase 47 (38-126) U/L Troponin I (0.000-0.034) ng/mL Total Protein 6.1 L (6.3-8.2) g/dL Albumin 3.8 (3.5-5.0) g/dL TSH 1.770 (0.465-4.680) mIU/L Influenza Type A (PCR) (Not Detectd) Influenza Type B (PCR) (Not Detectd) RSV (PCR) (Not Detectd) SARS-CoV-2 (PCR) (Not Detectd) 12/13/23 12/13/23 12/13/23 Range/Units 11:12 11:12 11:54 WBC (3.8-10.6) k/uL RBC (4.30-5.90) m/uL Hgb (13.0-17.5) gm/dL Hct (39.0-53.0) % MCV (80.0-100.0) fL MCH (25.0-35.0) pg MCHC (31.0-37.0) g/dL RDW (11.5-15.5) % Plt Count (150-450) k/uL MPV Neutrophils % % Lymphocytes % % Monocytes % % Eosinophils % % Basophils % % Neutrophils # (1.3-7.7) k/uL Lymphocytes # (1.0-4.8) k/uL Monocytes # (0-1.0) k/uL Eosinophils # (0-0.7) k/uL Basophils # (0-0.2) k/uL PT 11.9 (10.0-12.5) sec INR 1.1 (<1.2) APTT 18.3 L (22.0-30.0) sec Sodium (137-145) mmol/L Potassium (3.5-5.1) mmol/L Chloride (98-107) mmol/L Carbon Dioxide (22-30) mmol/L Anion Gap mmol/L BUN (9-20) mg/dL Creatinine (0.66-1.25) mg/dL Est GFR (CKD-EPI)AfAm (>60 ml/min/1.73 sqM) Est GFR (CKD-EPI)NonAf (>60 ml/min/1.73 sqM) Glucose (74-99) mg/dL Plasma Lactic Acid Adalberto (0.7-2.0) mmol/L Calcium (8.4-10.2) mg/dL Magnesium (1.6-2.3) mg/dL Total Bilirubin (0.2-1.3) mg/dL AST (17-59) U/L ALT (4-49) U/L Alkaline Phosphatase (38-126) U/L Troponin I <0.012 (0.000-0.034) ng/mL Total Protein (6.3-8.2) g/dL Albumin (3.5-5.0) g/dL TSH (0.465-4.680) mIU/L Influenza Type A (PCR) Not Detected (Not Detectd) Influenza Type B (PCR) Not Detected (Not Detectd) RSV (PCR) Not Detected (Not Detectd) SARS-CoV-2 (PCR) Not Detected (Not Detectd) 12/13/23 Range/Units 13:16 WBC (3.8-10.6) k/uL RBC (4.30-5.90) m/uL Hgb (13.0-17.5) gm/dL Hct (39.0-53.0) % MCV (80.0-100.0) fL MCH (25.0-35.0) pg MCHC (31.0-37.0) g/dL RDW (11.5-15.5) % Plt Count (150-450) k/uL MPV Neutrophils % % Lymphocytes % % Monocytes % % Eosinophils % % Basophils % % Neutrophils # (1.3-7.7) k/uL Lymphocytes # (1.0-4.8) k/uL Monocytes # (0-1.0) k/uL Eosinophils # (0-0.7) k/uL Basophils # (0-0.2) k/uL PT (10.0-12.5) sec INR (<1.2) APTT (22.0-30.0) sec Sodium (137-145) mmol/L Potassium (3.5-5.1) mmol/L Chloride (98-107) mmol/L Carbon Dioxide (22-30) mmol/L Anion Gap mmol/L BUN (9-20) mg/dL Creatinine (0.66-1.25) mg/dL Est GFR (CKD-EPI)AfAm (>60 ml/min/1.73 sqM) Est GFR (CKD-EPI)NonAf (>60 ml/min/1.73 sqM) Glucose (74-99) mg/dL Plasma Lactic Acid Adalberto 1.4 (0.7-2.0) mmol/L Calcium (8.4-10.2) mg/dL Magnesium (1.6-2.3) mg/dL Total Bilirubin (0.2-1.3) mg/dL AST (17-59) U/L ALT (4-49) U/L Alkaline Phosphatase (38-126) U/L Troponin I (0.000-0.034) ng/mL Total Protein (6.3-8.2) g/dL Albumin (3.5-5.0) g/dL TSH (0.465-4.680) mIU/L Influenza Type A (PCR) (Not Detectd) Influenza Type B (PCR) (Not Detectd) RSV (PCR) (Not Detectd) SARS-CoV-2 (PCR) (Not Detectd) Disposition Clinical Impression: Dizziness Disposition: HOME SELF-CARE Condition: Fair Instructions (If sedation given, give patient instructions): Dizziness (ED) Is patient prescribed a controlled substance at d/c from ED?: No Referrals: Javad Pierre MD [Primary Care Provider] - 1-2 days Time of Disposition: 13:36
[2023-12-13] MEDS ORDERED: LORazepam 2 MG/ML INJ IV STA (11:20)
[2023-12-13 11:28] LABS: Basophils % (A) 1 %; Eosinophils # (A) 0.1 k/uL (0-0.7); Eosinophils % (A) 1 %; Lymphocytes # (A) 0.8 k/uL (1.0-4.8); Lymphocytes % (A) 18 %; MCH 30.4 pg (25.0-35.0); MCHC 35.1 g/dL (31.0-37.0); MCV 86.6 fL (80.0-100.0); Mean Platelet Volume 7.5; Monocytes # (A) 0.3 k/uL (0-1.0); Monocytes % (A) 6 %; Neutrophils # (A) 3.4 k/uL (1.3-7.7); Neutrophils % (A) 74 %; Platelet Count 139 k/uL (150-450); RBC 4.62 m/uL (4.30-5.90); RDW 13.1 % (11.5-15.5); WBC 4.6 k/uL (3.8-10.6)
--- NOTE | 2023-12-13 11:34 | XR ---
EXAMINATION TYPE: XR chest 1V portable DATE OF EXAM: 12/13/2023 HISTORY: Shortness of breath. COMPARISON: 11/30/2021 TECHNIQUE: Single view of the chest is submitted. FINDINGS: Demonstrated are scattered senescent parenchymal change. There is no evidence for focal infiltrate. The heart is stable. Hilar and mediastinal structures are within normal limits. Degenerative changes are seen of the dorsal spine. IMPRESSION: 1. Chronic changes without evidence for acute pulmonary disease.
[2023-12-13] MEDS ORDERED: SODIUM CHLORIDE 0.9% 1,000 ML IV ONE (11:40)
[2023-12-13 11:55] VITALS: TEMP 98.2
[2023-12-13 12:18] LABS: ALT 18 U/L (4-49); AST 32 U/L (17-59); African American GFR (CKD) 63 (>60 ml/min/1.73 sqM); Albumin 3.8 g/dL (3.5-5.0); Alkaline Phosphatase 47 U/L (38-126); Anion Gap 9 mmol/L; Blood Urea Nitrogen 18 mg/dL (9-20); Calcium 8.9 mg/dL (8.4-10.2); Carbon Dioxide 23 mmol/L (22-30); Chloride 107 mmol/L (98-107); Glucose 134 mg/dL (74-99); Magnesium 1.6 mg/dL (1.6-2.3); Non-African American GFR(CKD) 54 (>60 ml/min/1.73 sqM); Potassium 3.1 mmol/L (3.5-5.1); Sodium 139 mmol/L (137-145); Total Bilirubin 0.7 mg/dL (0.2-1.3); Total Protein 6.1 g/dL (6.3-8.2)
[2023-12-13 12:18] LABS: INR 1.1 (<1.2); Prothrombin Time 11.9 sec (10.0-12.5)
[2023-12-13 12:24] LABS: Partial Thromboplastin Time 18.3 sec (22.0-30.0)
--- NOTE | 2023-12-13 13:02 | CT ---
EXAMINATION TYPE: CT angio head neck DATE OF EXAM: 12/13/2023 HISTORY: ams COMPARISON: CT DLP: 1575.5 mGycm. Automated Exposure Control for Dose Reduction was Utilized. TECHNIQUE: CTA scan of the neck is performed with IV Contrast, patient injected with 65 mL of Isovue 370, axial images are obtained, coronal and sagittal reformatted images are reviewed. Three-D recons tructed images are created on an independent workstation and reviewed. Source images are reviewed. FINDINGS: Carotid/Vascular Structures: There is a 3 vessel arch. Common carotid arteries bifurcate into internal and external carotid arteries without significant terence w limiting stenosis. Vertebral arteries are codominant. Internal carotid arteries and vertebral arteries are patent to the skull base. Cervical of [place]: Vertebral basilar system appears normal. Posterior cerebral vasculature is unrema rkable. Internal carotid arteries bifurcate normally into A1 and M1 segments. A2 segments are normal. The anterior communicating artery is patent. The right posterior communicating artery is small but patent. The left posterior communicating artery is patent. IMPRESSION: 1. No flow-limiting stenosis bilateral carotid bifurcations. 2. Normal [place] NASCET criteria was used in interpretation of this exam?
[2023-12-13 14:49] VITALS: BP 96/56; PULSE 66; RESP 18
== END 2023-12-13 14:45 | disposition home or self-care (01) ==
LOC: EC 10:51
DX: R42 Dizziness and giddiness (principal); E87.6 Hypokalemia; E87.20 Acidosis, unspecified; R00.1 Bradycardia, unspecified; Z20.822 Contact with and (suspected) exposure to COVID-19; Z87.891 Personal history of nicotine dependence
CPT/HCPCS: 36415; 93005; 80053; 83605; 83735; 84443; 84484; 85025; 85610; 85730; 87636; 71045; 70496; 70498; 99285; 96374; 96361; J2060; Q9967